=== PATIENT | female | born 1995 | race Caucasian/White ===

== ENCOUNTER 2017-01-01 22:43 | Emergency (ER) | payer OTHER ==
[2017-01-01 22:54] VITALS: BP 152/78
[2017-01-01] MEDS ORDERED: traMADol HCL 50 MG TABLET PO ONE (23:10)
--- NOTE | 2017-01-01 23:14 | ED Physician Documentation ---
Sore Throat/Dental Pain - HISTORIAN Historian: patient - HPI Stated Complaint: DENTAL Chief Complaint: Dental Pain Onset: days ago Further Comments: yes (21 year old female patient presents with complaint of dental pain in left bottom molars, states she took tylenol at 1300 with no relief.) - ROS CONST: no problems CVS/RESP: none GI/: denies: nausea, vomiting MS/SKIN/LYMPH: denies: muscle aches, rash, leg swelling, ankle swelling, other NEURO/PSYCH: none - PAST HX Past History: dental surgery (wisdom teeth removed) Other History: other (GERD, anxiety, depression) Allergies/Adverse Reactions: Allergies Allergy/AdvReac Type Severity Reaction Status Date / Time ibuprofen [From Motrin] Allergy Intermediate Face Verified 01/01/17 22:56 Swelling Penicillins Allergy Verified 01/01/17 22:56 Home Medications: Ambulatory Orders Medication Instructions Recorded NK [NK] 01/01/17 - SOCIAL HX Smoking History: cigarettes - FAMILY HX Family History: No - VITAL SIGNS Vital Signs: Vital Signs Temp Pulse Resp BP Pulse Ox 98.4 F 72 20 152/78 100 01/01/17 22:51 01/01/17 22:51 01/01/17 22:51 01/01/17 22:51 01/01/17 22:51 - REVIEWED ASSESSMENTS Nursing Assessment Reviewed: Yes Vitals Reviewed: Yes ED Results Lab/Radiology - Orders Orders: ED Orders Category Date Time Status traMADol HCL [Ultram] Med 01/01/17 23:10 Once 50 mg PO NOW ONE Dental Pain Physical Exam - EXAM General Appearance: mild distress Head/Neck: head nml inspection, trachea midline, no lymphadenopathy, thyroid nml , neck nml inspection Mouth/Throat: lips nml, pharynx nml, voice nml, no drooling, no air way problems , no thrush, membranes nml, gum swelling around teeth (very mild edema noted in gums around left bottoms molars, no erythema, no abscess noted. No caries in left bottom molars. ) Skin: warm/dry, normal color Neuro/Psych: No: weakness Discharge Clincal Impression: Pain, dental Referrals: Primary Doctor,No [Primary Care Provider] - 2 Days Additional Instructions: Make an appointment to see the dentist in the morning. Tylenol 500mg po q4h prn pain Ora Gel over the counter Home Medications: Ambulatory Orders NK [NK] 01/01/17 Condition: Stable Disposition: 01 HOME, SELF-CARE Decision to Admit: NO Decision Time: 23:12
== END 2017-01-01 23:21 | disposition home or self-care (01) ==
LOC: ED 22:43
DX: K02.9 Dental caries, unspecified (principal)
CPT/HCPCS: 99283